=== PATIENT | female | born 1965 | race Caucasian/White ===

== ENCOUNTER → 2020-10-08 | Outpatient (CLI) | payer OTHER ==
[2020-10-08 15:08] LABS: HEMOGLOBIN 8.5 gm/dl (12.3-15.3); RED BLOOD COUNT 3.44 M/UL (4.00-5.10); WHITE BLOOD COUNT 3.7 K/UL (4.5-11.0)
[2020-10-08 15:23] LABS: BUN/CREATININE RATIO 15 (0-10)
[2020-10-10 00:09] LABS: CCP ANTIBODIES IGG/IGA 7 units (0-19)
[2020-10-10 05:09] LABS: RHEUMATOID ARTHRITIS FACTOR <10.0 IU/mL (0.0-13.9)
== END ==
LOC: LAB 12:50
PROVIDERS: Nurse Practitioner Family
DX: M25.50 Pain in unspecified joint (principal); D89.9 Disorder involving the immune mechanism, unspecified; R76.8 Other specified abnormal immunological findings in serum
CPT/HCPCS: 36415; 80053; 82550; 83520; 85025; 85652; 86140; 86200; 86431

== ENCOUNTER → 2021-04-06 | Outpatient (CLI) | payer OTHER | LOC: EMI 10:40 | DX: S82.52XA Displaced fracture of medial malleolus of left tibia, initial encounter for closed fracture (principal); S82.62XA Displaced fracture of lateral malleolus of left fibula, initial encounter for closed fracture; M24.272 Disorder of ligament, left ankle; M19.072 Primary osteoarthritis, left ankle and foot; R93.7 Abnormal findings on diagnostic imaging of other parts of musculoskeletal system | CPT/HCPCS: 73721 ==

== ENCOUNTER → 2021-09-21 | Outpatient (CLI) | payer OTHER | LOC: KOH-I 10:47 | DX: M25.572 Pain in left ankle and joints of left foot (principal); M25.571 Pain in right ankle and joints of right foot | CPT/HCPCS: 73610; 73630; 73650 ==

== ENCOUNTER → 2021-11-02 | Outpatient (CLI) | payer OTHER ==
[~2021-11-02] MED LIST: ARMOUR THYROID90 MG PO; CYANOCOBAL1000 MCG/1 INJ; HYDROCHLOROTH12.5 MG PO; HYDROCODON-ACE1 EAC6 PO; METFORMIN HCL500 MG PO; VITAMIN D21250 MCG PO; WELLBUTRIN SR150 MG PO
[2021-11-02 10:35] LABS: HEMOGLOBIN 14.1 gm/dl (12.3-15.3); RED BLOOD COUNT 4.78 M/UL (4.00-5.10); WHITE BLOOD COUNT 3.9 K/UL (4.5-11.0)
[2021-11-02 10:49] LABS: BUN/CREATININE RATIO 18 (0-10)
== END ==
LOC: OPSV2 08:00
PROVIDERS: Podiatrist Foot & Ankle Surgery
DX: Z01.818 Encounter for other preprocedural examination (principal); S99.912A Unspecified injury of left ankle, initial encounter; X58.XXXA Exposure to other specified factors, initial encounter; M77.52 Other enthesopathy of left foot and ankle
CPT/HCPCS: 36415; 80048; 85027; 93005

== ENCOUNTER → 2021-11-06 | Day surgery (SDC) | payer OTHER | END | disposition home or self-care (01) | LOC: OR 05:51 | DX: S93.422A Sprain of deltoid ligament of left ankle, initial encounter (principal); M76.822 Posterior tibial tendinitis, left leg; G89.29 Other chronic pain; M24.272 Disorder of ligament, left ankle; E11.9 Type 2 diabetes mellitus without complications; D50.9 Iron deficiency anemia, unspecified; E03.9 Hypothyroidism, unspecified; Z79.84 Long term (current) use of oral hypoglycemic drugs; Z79.899 Other long term (current) drug therapy; Z88.6 Allergy status to analgesic agent; X58.XXXA Exposure to other specified factors, initial encounter | CPT/HCPCS: 73630; 76000; 82962; C1713; C1776; J0690; J1100; J1170; J1885; J2001; J2250; J2270; J2405; J2704; J2795; J3370 ==

== ENCOUNTER → 2021-12-28 | Outpatient (CLI) | payer OTHER | LOC: KOH-I 11:32 | DX: M25.572 Pain in left ankle and joints of left foot (principal); M79.672 Pain in left foot; Z96.7 Presence of other bone and tendon implants | CPT/HCPCS: 73610; 73630 ==

== ENCOUNTER → 2022-02-16 | Outpatient (CLI) | payer OTHER | LOC: KOH-I 15:59 | DX: M79.672 Pain in left foot (principal); M25.572 Pain in left ankle and joints of left foot; M19.032 Primary osteoarthritis, left wrist; M21.42 Flat foot [pes planus] (acquired), left foot | CPT/HCPCS: 73610; 73630 ==